=== PATIENT | male | born 1995 | race Two or more races ===

== ENCOUNTER 2021-12-19 10:30 | Emergency (ER) | payer OTHER ==
[~2021-12-19] VITALS: Ht 177.8 cm; Wt 97.5 kg
== END 2021-12-19 12:57 | disposition home or self-care (01) ==
LOC: ER 10:30
DX: S01.421A Laceration with foreign body of right cheek and temporomandibular area, initial encounter (principal); W45.8XXA Other foreign body or object entering through skin, initial encounter; W22.8XXA Striking against or struck by other objects, initial encounter; Y93.9 Activity, unspecified; Y92.019 Unspecified place in single-family (private) house as the place of occurrence of the external cause